=== PATIENT | male | born 1940 | race Caucasian/White ===

== ENCOUNTER 2016-06-01 04:25 | Observation (INO) | payer OTHER ==
[2016-05-28 09:51] LABS: HEMATOCRIT 30.2 % (40.0-51.0); HEMOGLOBIN 10.1 g/dL (13.6-17.8)
[2016-05-28 10:06] LABS: BUN (BLOOD UREA NITROGEN) 18 MG/DL (6-23); CALCIUM, SERUM 9.3 MG/DL (8.5-10.4); CHLORIDE, SERUM 108 MMOL/L (96-112); CO2 (CARBON DIOXIDE) 30 MMOL/L (24-34); CREATININE 1.24 MG/DL (0.70-1.30); GFR AFRICAN AMERICAN 65 ML/MIN (>=60); GFR NON AFRICAN AMERICAN 56 ML/MIN (>=60); GLUCOSE, SERUM 125 MG/DL (60-99); POTASSIUM, SERUM 3.5 MMOL/L (3.5-5.3); SODIUM, SERUM 146 MMOL/L (135-148)
[2016-05-28 10:12] LABS: INTACT PTH (ICMA) 254.4 PG/ML (10.0-65.0)
--- NOTE | ~2016-06-01 | OP ---
Record Of Operation [facility] [address] [place]. [address] NAME: MARTIN CROCKETT : 40 STATUS : DIS Dia PAT#: [id number] AGE: 76 ADM/REG DATE : 06/01/16 MR#: [id number] REPORT SERV DATE: 06/04/16 DICTATED BY: FIORELLA THORNTON DATE: 06/01/16 REPORT STATUS : Draft TRANSCRIBED BY: MODL DATE: 06/01/16 DATE OF PROCEDURE: 06/01/2016 PREOPERATIVE DIAGNOSIS: Primary hyperparathyroidism. POSTOPERATIVE DIAGNOSIS: Primary hyperparathyroidism. PROCEDURE: Subtotal parathyroidectomy using intraoperative PTH monitoring. SURGEON: Fiorella Thornton MD TRANSMISSION BUILDER: Dr. Gavin. ANESTHESIA: General. ESTIMATED BLOOD LOSS: 5 mL. SPECIMEN: 1. Right inferior parathyroid gland. 2. Partial right superior parathyroid gland. 3. Left inferior parathyroid gland. 4. Left superior parathyroid gland. COMPLICATIONS: None. BRIEF HISTORY: Mr. Crockett is a 76-year-old man, who presented with primary hyperparathyroidism from Dr. Amaya's office. Ultrasound was negative. Sestamibi scan showed a possible increased uptake in the right inferior thyroid region. Parathyroidectomy was recommended. The procedure with the risks including bleeding, infection, injury to the recurrent laryngeal nerve causing hoarseness, low calcium following surgery, and the possibility of recurrent or persistent disease were all explained. He agreed to proceed. DESCRIPTION OF PROCEDURE: After consent was obtained, he was taken to the operating room, and placed in supine position on the operating table. General endotracheal anesthesia was administered, a shoulder roll was placed, neck was extended. He was placed in semi-Medina's position. Preoperative antibiotics were administered. SCDs were placed. Time-out was performed. We began by making a 4 cm skin crease incision using a 15 blade scalpel. Electrocautery was then used to dissect through the subcutaneous tissues and platysma. Subplatysmal flaps were created and the strap muscles were in the midline using electrocautery. We began on the right side, and we elevated the right strap muscle, and dissected the thyroid away from strap muscle back to the carotid. We began at the lower pole as this was where that may be suggesting some mild increased activity. We dissected and identified an enlarged parathyroid gland just off the lateral aspect of the lower pole of the thyroid. We Record Of Operation [facility] [address] [place]. [address] NAME: MARTIN CROCKETT : 40 STATUS : DIS Dia PAT#: [id number] AGE: 76 ADM/REG DATE : 06/01/16 MR#: [id number] REPORT SERV DATE: 06/04/16 DICTATED BY: FIORELLA THORNTON MAO DATE: 06/01/16 REPORT STATUS : Draft TRANSCRIBED BY: VIKTORIYA DATE: 06/01/16 dissected it circumferentially. It appeared to have somewhat of a bulbous appearance suggesting a possible adenoma. It was not obvious, therefore, we elected to continue our dissection. We mobilized the gland anteromedially and exposed the superior parathyroid gland. We dissected circumferentially and elevated it. It was much flatter, but was still enlarged over the right inferior. We then elected to proceed to the left side, in similar fashion, we elevated the left strap muscle and dissected the thyroid away from strap muscle back to the carotid. We began at the lower pole and immediately identified the enlarged, but relatively flattened parathyroid gland at the lateral aspect of the inferior pole of the thyroid. We proceeded to the superior pole and rotated the gland superomedially and identified once again the enlarged, but relatively flattened gland at the left superior position. Given that the only one that had an appearance possibly representing an adenoma was right inferior and that was where that may be suggesting increased activity, we elected to remove this and draw PTH values. We dissected circumferentially around the gland. We divided the pedicle between clips and passed it off the field. We then nicole intraoperative PTH values. Our initial PTH was 133, and then after 10 minutes had risen to 200, and in 15 minutes down to 170s. We then knew that this represented hyperplasia, and therefore, we elected for a subtotal parathyroidectomy. We proceeded to the right superior pole and elected for this time for the partial resection. We elevated the gland preserving the blood supply and then divided in half using clips and a 15 blade scalpel. We then proceeded to the left side and elevated the left inferior gland, divided the pedicle between clips, and passed it off the field. We then once again inspected the right superior and it was viable, and therefore, we removed the left superior by elevating it and dividing the pedicle between clips. We then irrigated both sides of the neck. Hemostasis was good. Surgicel was placed. We then reapproximated the strap muscles in the midline using a running 3-0 Vicryl suture with a small gap left inferiorly. The platysma was reapproximated with interrupted 4-0 Vicryl sutures. A running 5-0 Monocryl deep dermal suture was placed, followed by running 5-0 Prolene subcuticular stitch. The neck was cleaned, Dermabond was applied, and the Prolene was removed. The patient tolerated the procedure well, he was extubated in the operating room, and sent to the recovery room in stable condition. WG/MODL Fiorella Thornton MD / [id number] CC: MD Jh Diaz MD
[~2016-06-01 04:25] MED LIST: ACET500CAP PO; ASAB PO; ATEN25 PO; COREG12 PO; DORZOLAMIDE; DORZOLAMIDE2 % OP; K-TABS10 MEQ PO; KDUR10 PO; L20 PO; LORTAB 5 PO; PAX20 PO; PRIM50B PO; TEARS PLUS OP; TEARS PLUS OPH; TRAZ100 PO; TRUSOPT2 % OPH; VITAMIN B-121000 MC1 SL; VITD PO; XALAT OPH; Z300 PO; ZESTRIL20 MG PO; ZETIA PO
[2016-06-01 08:19] LABS: PTH (INTRAOPERATIVE) 133.1 PG/ML (10.0-65.0); PTH TAT 0 Hrs 19 Mins
[2016-06-01 09:31] LABS: PTH (INTRAOPERATIVE) 208.9 PG/ML (10.0-65.0); PTH TAT 0 Hrs 00 Mins
[2016-06-01 09:35] LABS: PTH (INTRAOPERATIVE) 170.2 PG/ML (10.0-65.0); PTH TAT 0 Hrs 00 Mins
[2016-06-01 10:31] LABS: PTH (INTRAOPERATIVE) 35.5 PG/ML (10.0-65.0); PTH TAT 0 Hrs 21 Mins
[2016-06-02] MEDS ORDERED: CALTRAT600 PO (12:29)
[2016-06-02] MEDS ORDERED: PCET PO (12:29)
[2016-09-19] MEDS ORDERED: L20 PO (21:21)
[2016-09-19] MEDS ORDERED: GLUCPH PO (21:22)
[2016-09-19] MEDS ORDERED: FRESHKOTE OPH (21:22)
[2016-09-19] MEDS ORDERED: PAX20 PO (21:22)
[2016-09-19] MEDS ORDERED: KDUR20 PO (21:23)
[2016-09-19] MEDS ORDERED: FLEXERIL5 MG PO (21:23)
[2016-09-19] MEDS ORDERED: PRIM50B PO (21:23)
[2016-09-19] MEDS ORDERED: RISP2 PO (21:24)
[2016-09-19] MEDS ORDERED: XALAT OPH (21:24)
[2016-09-19] MEDS ORDERED: IMOD PO (21:25)
[2016-09-19] MEDS ORDERED: ACET500CAP PO (21:25)
[2016-09-19] MEDS ORDERED: NORCO1 TA1 PO (21:25)
[2016-09-19] MEDS ORDERED: FERROUS SULF325 M1 PO (21:26)
[2016-09-19] MEDS ORDERED: PROTONIX PO (21:26)
[2016-09-19] MEDS ORDERED: TRUSOPT2 % OPH (21:26)
[2016-09-19] MEDS ORDERED: PRIN5 PO (21:27)
[2016-09-19] MEDS ORDERED: Z300 PO (21:27)
[2016-09-19] MEDS ORDERED: MIRALAX POWDER1 PKT PO (21:27)
[2016-09-19] MEDS ORDERED: IMDUR60 PO (21:27)
[2016-09-19] MEDS ORDERED: COREG25 PO (21:28)
[2016-09-19] MEDS ORDERED: ASAB PO (21:28)
[2016-09-19] MEDS ORDERED: NORV5 PO (21:28)
[2016-09-19] MEDS ORDERED: ZETIA PO (21:28)
== END 2016-06-02 14:41 | disposition home or self-care (01) ==
LOC: SDC 04:25 → 4SO 12:53
PROVIDERS: Surgery
PROC: 0GBQ0ZZ Excision of Multiple Parathyroid Glands, Open Approach (ICD-10-PCS; principal; 2016-06-01 07:45)
DX: E21.0 Primary hyperparathyroidism (principal); K58.9 Irritable bowel syndrome, unspecified; D64.9 Anemia, unspecified; F41.9 Anxiety disorder, unspecified; F32.9 Major depressive disorder, single episode, unspecified; K44.9 Diaphragmatic hernia without obstruction or gangrene; M19.90 Unspecified osteoarthritis, unspecified site; E78.5 Hyperlipidemia, unspecified; M10.9 Gout, unspecified; G20 Parkinson's disease; G43.909 Migraine, unspecified, not intractable, without status migrainosus; G47.33 Obstructive sleep apnea (adult) (pediatric); I10 Essential (primary) hypertension; Z90.49 Acquired absence of other specified parts of digestive tract; Z82.49 Family history of ischemic heart disease and other diseases of the circulatory system; Z82.3 Family history of stroke; Z91.041 Radiographic dye allergy status; Z88.1 Allergy status to other antibiotic agents; Z79.82 Long term (current) use of aspirin; Z79.899 Other long term (current) drug therapy; Z98.41 Cataract extraction status, right eye; Z98.42 Cataract extraction status, left eye; Z96.652 Presence of left artificial knee joint
CPT/HCPCS: 80048; 82310; 82962; 83970; 85014; 85018; 88305; 93005; 96372; 96374; 96375; A9270-GY; G0378; J0360; J0690; J1630; J2270; J2405; J2710; J3010